=== PATIENT | female | born 1935 | race Caucasian/White ===

== ENCOUNTER → 2016-11-10 | Outpatient (CLI) | payer OTHER ==
[~2016-11-10] MED LIST: ASPI-COR81 M1 PO; ASPIRIN81 M1 PO; B121000 MCG/1 IM; BONIVA150 MG PO; CALCIUM500 M1 PO; CLINDAMYCIN HC300 MG PO; COLACE100 MG PO; DAYPRO600 M1 PO; DAYPRO600 MG; DULCOLAX STOOL100 MG PO; FERRIMIN 150150 M1 PO; HYDROCODONE BIT1 T11 PO; HYDROXYCHLOROQ200 MG PO; KEFLEX500 M1 PO; LEVOTHYROXIN0.025 MG PO; LOPRESSOR25 MG PO; MECLOFENAMATE PO; MEDROL DOSEPAK4 MG PO; NEURONTIN300 MG PO; OMEPRAZOLE20 MG PO; ORASONE5 MG PO; PLAQUENIL200 MG PO; PREDNISONE5 MG PO; PRILOSEC20 M2 PO; PRILOSEC20 MG PO; SYNTHROID,LEVO25 MCG PO; TOPROL XL25 MG PO; TRAMADOL HCL50 MG PO; VICODIN 500 MG-1 TAB PO; VISION FORMULA1 TAB PO; VISION1 TAB PO; XANAX0.25 MG PO; ZOFRAN ODT4 MG SL; [UNRECOGNIZED DRUG - OTHER] PO
== END | disposition home or self-care (01) ==
LOC: MRI 07:00
DX: M48.06 Spinal stenosis, lumbar region (principal); M47.896 Other spondylosis, lumbar region; M54.5 Low back pain; M25.552 Pain in left hip; M79.652 Pain in left thigh; M25.562 Pain in left knee; M79.605 Pain in left leg; Z98.890 Other specified postprocedural states

== ENCOUNTER → 2016-12-07 | Outpatient (CLI) | payer OTHER | END | disposition home or self-care (01) | LOC: MRI 13:41 | DX: S39.93XA Unspecified injury of pelvis, initial encounter (principal); R10.2 Pelvic and perineal pain; X58.XXXA Exposure to other specified factors, initial encounter; Y93.89 Activity, other specified; Y92.89 Other specified places as the place of occurrence of the external cause; Y99.8 Other external cause status ==

== ENCOUNTER → 2016-12-29 | Outpatient (CLI) | payer OTHER ==
--- NOTE | ~2016-12-29 | WRIGHTHP ---
[place], [place] PATIENT HISTORY AND PHYSICAL EXAM NAME: STACEY ROGERS [facility] #: [id number] UNIT #: [id number] ROOM: DOCTOR: TREVON SuárezQUIANA BIRTHDATE: 31 DOS: 12/29/2016 CHIEF COMPLAINT: Ulcer of the right lower extremity. HISTORY OF PRESENT ILLNESS: This is a new patient to the Wound Center who I have seen before in the hospital several months ago for a dehisced wound of the left lower extremity, but she is new to our wound care center. She is an 81 years old with a history of rheumatoid arthritis, on chronic prednisone therapy, who comes in for an ulcer of her right lower extremity. Apparently, it started out approximately over a month, perhaps 1-2 months. It is not quite clear when did it actually started. An area on her right lower leg anterior tibia that look like a blood blister. According to the patient and her , it was bright red, what looked to be a lesion filled with blood. At some point, it eventually looked like it had scabbed over, but may not have healed quite properly. After that he started having some wound care per his primary care physician and having home health come in to help with wound care, who had started to apply moist dressings to it, and eventually the scab came off and then it became an open ulcer afterwards that just never quite healed. For at least 2 weeks now it has been open. He has been using an antiseptic cleanser at home that he got from the [id number] and home health has been coming in and putting dressings on it, which he thinks has started out as he says some kind of a gauze material, may have had some antiseptic on it, but she is not quite clear. In any case, she did have an ulcer of her left leg several months ago, which healed with the wound care with that dehisced wound as that became infected. At the time when I had seen the patient was concerned about her vascular status and ultrasound was done of the left lower extremity at that time, which showed mild inflow disease, but severe distal atherosclerosis as the waveforms became monophasic at the ankle indicating severe distal disease, although she did have readings in the dorsalis pedis and posterior tibial artery it was noted. In any case, I had mentioned for recommended at that time to follow up with Vascular but the wound apparently did heal. The patient does not report any specific pain at the present time with the wound. She has no fevers or chills. It is not draining any purulent material that they are aware of. PAST MEDICAL HISTORY: Significant for the following: Recent shingles exacerbation, history of hypertension, osteoporosis, acute kidney disease, history of frailty and history of falls. She does use a cane to ambulate, but also has a wheelchair now. History of rheumatoid arthritis, history of mild dementia and history of pernicious anemia, thyroid disease, acid reflux, history of constipation, history of Paget's disease, and mild dementia. ALLERGIES: She has no known drug allergies. PAST SURGICAL HISTORY: She is status post right total knee with pins to the right ankle, laparoscopic cholecystectomy, right wrist surgery, left total knee replacement. She has had a stress test done. She reports no history of myocardial infarction. SOCIAL HISTORY: She does not smoke or drink. She lives with her who is quite devoted to her and helps care for her. [place], [place] PATIENT HISTORY AND PHYSICAL EXAM [facility]: [id number] UNIT #: [id number] ROOM: DOCTOR: QUIANA LESTER M.D. BIRTHDATE: [birth year] FAMILY HISTORY: Significant for cancer in her siblings, diabetes in her mother, lung disease in one of her children. MEDICATIONS: Her most recent medication list include the following: Xanax 0.25 mg p.o. p.r.n. daily, calcium 500 mg p.r.n. Vision Formula daily, Colace 100 twice a day, iron sulfate 325 daily, [place] one tablet q.4 hours p.r.n., hydroxychloroquine 200 mg p.o. b.i.d., Boniva 150 mg, levothyroxine 25 mcg daily, metoprolol 25 daily, omeprazole 20 mg p.o. b.i.d., prednisone 5 mg daily, Zofran 4 mg q.6 hours p.r.n. REVIEW OF SYSTEMS: CONSTITUTIONAL: No fevers or chills, but she has had a recent weight loss, especially with her recent bout of shingles, which is healing in the healing phases but it does cause occasional pins and needles sensation. Rest of her review of systems as far as ears, eyes, nose, throat and mouth, cardiovascular, respiratory, GI, , musculoskeletal, integumentary, neuro, psychiatric, endocrine, heme, lymph, allergies, immuno are negative unless otherwise as stated above at the present time. PHYSICAL EXAMINATION: GENERAL: She is alert, oriented and nonfocal. She is pleasant and cooperative. VITAL SIGNS: Temperature is 98.6, pulse of 72, respirations 18, blood pressure is 120/72. She appears her stated age, slightly pale to examination. HEENT: Negative. NECK: Supple. There is no JVD. LUNGS: Clear to auscultation. CARDIOVASCULAR: S1, S2 regular rate and rhythm. ABDOMEN: Soft and nontender. EXTREMITIES: She has trace edema bilaterally. There is no calf pain. Her toes are warm. She has got good capillary refill. Dorsalis pedis pulses are palpable, but I have difficult time feeling the posterior tibial. She has evidence of venous stasis disease as well. SANTIAGO was not done as the patient had complained of too much pain. The wound is located on the right anterior tibia. It is measuring 2.9 x 2 x 0.1 in depth. There is exposed subcutaneous tissue. There is a periphery. The periphery of the wound has epithelial tissue noted that appears to be new. There is no surrounding cellulitis, purulence or tenderness at this time. A debridement was done today. The tissue removed was fibrin, slough and subcutaneous tissue. There was a minimal amount of bleeding that was controlled with pressure. The patient tolerated the debridement well. Cetacaine spray was used for topical anesthesia and the instrument utilized was a curette. The 100% of the wound was debrided. The post-debridement measurements are 2.9 x 2.3 x 0.2 in depth. A tissue culture was obtained. 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 It sounds like it started out as a hematoma with subsequent poor healing. She at this time has some necrotic tissue present. Debridement was done today. I would like to use Natacha for now. A tissue culture was obtained. I do not appreciate any acute signs of an infection. She likely has some venous insufficiency and some peripheral vascular disease, which was already noted on a [place], [place] PATIENT HISTORY AND PHYSICAL EXAM NAME: [facility]UESTACEY David [facility]: [id number] UNIT #: [id number] ROOM: DOCTOR: TREVON Suárez,QUIANA BIRTHDATE: [birth year] Doppler in the past on the left lower extremity; however, I would like to get a Doppler of the right lower extremity arterial and venous will be ordered. Hopefully, we can try to schedule this at the same time of her next Wound Care Clinic, so it is somewhat difficult for her to get in and out of her house as she has not been out of the house for 2 months now. She has home health, so we are going to have them do the dressing changes, and I would use a foam bandage over this. Her most recent labs are as follows. White count of 8.5, this is back in August, hemoglobin of 11.6 and platelets of 194. Sodium of 148, this is back in August. Potassium 4.4, chloride 108, BUN 31, creatinine 1.3, glucose is 112. So factors regarding the poor wound healing include her chronic history of rheumatoid arthritis and chronic prednisone therapy. We will have the patient follow up in the Wound Clinic in one week. QUIANA LESTER MD CM:HISPHYS:PATIENT HISTORY AND PHYSICAL EXAMINATION [id number] QUIANA LESTER M.D. 12/30/16 0746 interface
== END ==
LOC: WOUNDCARE 02:01
DX: L97.812 Non-pressure chronic ulcer of other part of right lower leg with fat layer exposed (principal); I87.2 Venous insufficiency (chronic) (peripheral); I73.9 Peripheral vascular disease, unspecified; M06.9 Rheumatoid arthritis, unspecified; I10 Essential (primary) hypertension; M81.0 Age-related osteoporosis without current pathological fracture; F03.90 Unspecified dementia, unspecified severity, without behavioral disturbance, psychotic disturbance, mood disturbance, and anxiety; K21.9 Gastro-esophageal reflux disease without esophagitis; Z96.652 Presence of left artificial knee joint

== ENCOUNTER → 2017-01-09 | Outpatient (CLI) | payer OTHER ==
--- NOTE | ~2017-01-09 | PR ---
[place], [place] PROGRESS NOTE NAME: STACEY ROGERS [facility] #: [id number] UNIT #: [id number] ROOM: DOCTOR: QUIANA LESTER M.D. BIRTHDATE: [birth year] DOS: 01/09/2017 CHIEF COMPLAINT: Ulcer of the right lower extremity. HISTORY OF PRESENT ILLNESS: The ulcer is located on the anterior leg. She has had it for approximately 2 months now. It likely started out as a hematoma; however, this is not 100% sure. She has been coming to the Wound Clinic since 12/29/2016. This is her second visit. We used TheraHoney on it to help keep it clean and she is scheduled for Doppler ultrasounds to be done today. Overall, they think the wound is looking better. There is no change in drainage. There is no pain, fevers or chills. They do not have any problem with the dressing at all and she seems to like the foam and the honey. OBJECTIVE: VITAL SIGNS: Stable. Temperature is 98.6, pulse of 70, respirations 18, blood pressure is 118/70. WOUND EXAMINATION: The wound is measuring 2.1 x 2 x 0.1. There is moderate amount of fibrin and slough, exposed subcutaneous tissue. Debridement was done today. The tissue removed was fibrin, slough and subcutaneous tissue. There was a moderate amount of bleeding that was controlled with pressure. Post-debridement measurements are 2.1 x 2 x 0.2 in depth, 100% of the wound was debrided, a curette was utilized. Bleeding was controlled with pressure. ASSESSMENT AND PLAN: Right lower leg ulcer, likely was traumatic in origin, probable venous insufficiency. She does have some edema and varicosities noted on examination. She is scheduled for Doppler ultrasound today. She is on honey and will continue with this dressing for now. Follow up in 1 week. QUIANA LESTER MD CM:PNTRANS [id number] QUIANA LESTER M.D. 01/10/17 0151 interface
== END | disposition home or self-care (01) ==
LOC: US 03:34
DX: E11.622 Type 2 diabetes mellitus with other skin ulcer (principal); L97.912 Non-pressure chronic ulcer of unspecified part of right lower leg with fat layer exposed; I73.9 Peripheral vascular disease, unspecified; I87.2 Venous insufficiency (chronic) (peripheral); I10 Essential (primary) hypertension

== ENCOUNTER 2017-12-05 09:37 | Inpatient (IN) | payer OTHER ==
[2017-12-05] VITALS (8 sets, daily range): BP systolic 108–148; BP diastolic 45–60
[~2017-12-05] VITALS: Ht 157.5 cm; Wt 58.7 kg
--- NOTE | ~2017-12-05 | DS ---
[place], [place] DISCHARGE SUMMARY NAME: STACEY ROGERS UNIT #: [id number] ROOM: 524 DOCTOR: MEREDITH BAJWA MD BIRTHDATE: [birth year] DOS: 12/08/2017 DISCHARGE DIAGNOSES: 1. Fall with right hip fracture, status post open reduction and internal fixation. 2. Benign essential hypertension. 3. Adult failure to thrive. 4. Anemia with hemoglobin of 7.7. 5. Concentric left ventricular hypertrophy on echocardiogram. 6. Mitral valve and tricuspid valve regurgitation. 7. Adult failure to thrive with recurrent falls. 8. Rheumatoid arthritis. 9. Anemia of chronic disease. HOSPITAL COURSE: The patient's hemoglobin has dropped to 7.7, which will be rechecked at the [facility] facility and the patient will be transfused with blood as necessary. The patient is status post open reduction and internal fixation of her right hip fracture. Benign essential hypertension with concentric LVH. Blood pressures were monitored and treated. Blood pressures have been staying normal. Adult failure to thrive, recurrent falls and injuries. The patient worked with Physical Therapy and is going to [facility] facility for continued rehab. Anemia of chronic disease with drop in hemoglobin to 7.7. We will recheck hemoglobin at senior care, also repeat CBC on Monday and look for any drop in H and H. LABORATORY DATA: Urine culture is growing E. coli, to be treated with Augmentin. Hemoglobin 7.7. No leukocytosis. Platelets low at 104,000. Foot x-ray is showing no fractures, reviewed by Dr. Perales. DISCHARGE MANAGEMENT: Fosamax 70 mg weekly, iron 325 mg every other day, prednisone 5 mg daily, metoprolol 25 mg daily, Lovenox 60 mg daily, omeprazole 40 mg daily, levothyroxine 25 mcg daily, Colace 100 mg b.i.d., Vicodin 5/325 mg t.i.d. p.r.n. for pain, hydroxychloroquine 200 mg b.i.d. [place], [place] DISCHARGE SUMMARY NAME: STACEY ROGERS UNIT #: [id number] ROOM: 524 DOCTOR: MEREDITH BAJWA MD BIRTHDATE: [birth year] MEREDITH BAJWA MD CM:CARLOS ALBERTO [id number] MEREDITH BAJWA MD 12/08/17 1355 interface
--- NOTE | ~2017-12-05 | PR ---
[place], [place] PROGRESS NOTE [id number] UNIT #: [id number] ROOM: 524 DOCTOR: AKIRA WILCOX MD BIRTHDATE: [birth year] DOS: SUBJECTIVE: The patient is doing fine without any complaints this morning other than some minimal nausea. OBJECTIVE: VITAL SIGNS: Blood pressure is 118/60, pulse of 89, respirations 20, temperature 98.0. LUNGS: Clear. HEART: Regular, systolic murmur present. EXTREMITIES: Without any edema. LABORATORY DATA: This morning shows WBC count of 11.7, hemoglobin 9.2, hematocrit 28.6, platelets 114. Urinalysis reflects to culture. ASSESSMENT AND PLAN: 1. Fall with right hip fracture status post open reduction internal fixation. 2. Hypertension, controlled. Restart some of her home medications. 3. Adult failure to thrive. The plan is to discharge her to [facility]. Social service has been consulted. AKIRA WILCOX MD CM:PNTRANS [id number] AKIRA WILCOX MD 12/07/17 0932 interface
--- NOTE | ~2017-12-05 | WRIGHTHP ---
[place], [place] PATIENT HISTORY AND PHYSICAL EXAM NAME: STACEY ROGERS [facility] #: [id number] UNIT #: [id number] ROOM: 524 DOCTOR: AKIRA WILCOX MD BIRTHDATE: [birth year] DOS: 12/05/2017 HISTORY OF PRESENT ILLNESS: The patient is 82-year-old. The patient was at home. She walked to the bathroom and realized she did have a cane. She went back to get the cane, in the process she fell down on the right hip, developed excruciating pain, so decided to come into the Emergency Room. After she came to the ER, she had x-rays done, which showed right hip fracture and she has been admitted. This morning, she feels good, does not have any pain as long she is not moved. She does not have any shortness of breath or chest pains, does not have any fever or chills, does not have any abdominal pain, nausea, any emesis. PAST MEDICAL HISTORY: Significant for; 1. Benign hypertension. 2. Concentric LVH. 3. Valvular heart disease with MR and TR. 4. History of frailty with falls. 5. Rheumatoid arthritis. 6. History of fracture of the left hip with history of repair. 7. History of chronic anemia. MEDICATIONS: She is currently on Xanax 0.5 daily p.r.n., alendronate 70 once weekly, aspirin 81 daily, beta carotene 1 tablet daily, calcium 500 daily, Colace 100 b.i.d., iron 325 daily, Plaquenil 200 b.i.d., levothyroxine 25 mcg daily, Meloxicam 7.5 daily, metoprolol 25 daily, omeprazole 40 daily, prednisone 5 daily. SOCIAL HISTORY: Nonsmoker, does not use any alcohol. Lives at home with her . PHYSICAL EXAMINATION: GENERAL: She is awake and alert and oriented, in no distress. VITAL SIGNS: Blood pressure is 105/53, pulse of 82, respirations 16, temperature 99.1. LUNGS: Diminished breath sounds, clear. HEART: Regular. Systolic murmur heard in the second space as well as along the sternal border. . EXTREMITIES: Without any edema except for an externally rotated right hip. ABDOMEN: Obese, soft, nontender. ASSESSMENT AND PLAN: 1. Right hip fracture. The patient needs to go for surgery. 2. Benign hypertension with concentric left ventricular hypertrophy and valvular heart disease in the form of mitral regurgitation and tricuspid regurgitation. The patient does have moderate risk factors because of the cardiac problems, but that should not preclude her from having her surgery. Judicious use of IV fluids should be followed during surgery as well as post-surgery. 3. Osteoporosis, postmenopausal. Already on medications. 4. Rheumatoid arthritis, on chronic prednisone usage. The patient does not have any evidence of synovitis right now and the pain is controlled on the [place], [place] PATIENT HISTORY AND PHYSICAL EXAM NAME: STACEY ROGERS UNIT #: [id number] ROOM: 524 DOCTOR: AKIRA WILCOX MD BIRTHDATE: [birth year] current dose of medications. AKIRA WILCOX MD CM:HISPHYS:PATIENT HISTORY AND PHYSICAL EXAMINATION 0 2 AKIRA WILCOX MD 12/06/17901 interface
[2017-12-05 10:01] LABS: BASO % 0.3 % (0.0-1.0); EOS # 0.1 10*3/uL (0.0-0.4); EOS % 1.4 % (1.0-4.0); HEMATOCRIT 37.1 % (37.0-47.0); HEMOGLOBIN 12.1 g/dl (12.0-16.0); LYMPH # 1.8 10*3/uL (1.3-4.4); LYMPH % 26.7 % (27.0-41.0); MEAN CELL VOLUME 95.9 fl (81.0-99.0); MEAN CORPUSCULAR HGB 31.3 pg (27.0-31.0); MEAN CORPUSCULAR HGB CONC 32.6 g/dl (33.0-37.0); MONO # 0.5 10*3/uL (0.1-1.0); MONO % 7.5 % (3.0-9.0); NEUT # 4.2 10*3/uL (2.3-7.9); NEUT % 63.3 % (47.0-73.0); PLATELET COUNT AUTOMATED 153 10*3/uL (130-400); RED BLOOD COUNT 3.87 10*6/uL (4.10-5.10); RED CELL DISTRI WIDTH 14.6 % (0-14.5); WHITE BLOOD COUNT 6.6 10*3/uL (4.8-10.8)
[2017-12-05 10:10] LABS: ACT PARTIAL THROMBO TIME 22.9 SECONDS (20.8-31.5)
[2017-12-05 10:18] LABS: ALBUMIN 3.2 gm/dl (3.1-4.5); CREATININE 1.19 mg/dL (0.55-1.02)
[2017-12-05] MEDS ORDERED: Oscal,Oyster S500 MG PO (15:59)
[2017-12-05] MEDS ORDERED: MELOXICAM7.5 MG PO (16:00)
[2017-12-05] MEDS ORDERED: ALENDRONATE SOD70 M1 PO (16:04)
[2017-12-05] MEDS ORDERED: OMEPRAZOLE40 MG PO (16:06)
[2017-12-05] MEDS ORDERED: ASPIRIN CHEWABL81 MG PO (18:21)
[2017-12-05] MEDS ORDERED: VISION VITAMIN1 EACH PO (18:21)
[2017-12-05] MEDS ORDERED: FERROUS SULFAT325 MG PO (18:23)
[2017-12-06] VITALS (13 sets, daily range): BP systolic 99–135; BP diastolic 46–99
[2017-12-06 06:57] LABS: BASO % 0.3 % (0.0-1.0); EOS # 0.1 10*3/uL (0.0-0.4); EOS % 1.3 % (1.0-4.0); HEMATOCRIT 33.7 % (37.0-47.0); LYMPH # 1.4 10*3/uL (1.3-4.4); LYMPH % 14.7 % (27.0-41.0); MEAN CELL VOLUME 95.2 fl (81.0-99.0); MEAN CORPUSCULAR HGB 31.1 pg (27.0-31.0); MEAN CORPUSCULAR HGB CONC 32.6 g/dl (33.0-37.0); MEAN PLATELET VOLUME 9.2 fl (9.6-12.3); MONO # 0.8 10*3/uL (0.1-1.0); MONO % 8.3 % (3.0-9.0); NEUT # 7.2 10*3/uL (2.3-7.9); NEUT % 74.6 % (47.0-73.0); PLATELET COUNT AUTOMATED 125 10*3/uL (130-400); RED BLOOD COUNT 3.54 10*6/uL (4.10-5.10); RED CELL DISTRI WIDTH 14.5 % (0-14.5); WHITE BLOOD COUNT 9.7 10*3/uL (4.8-10.8)
[2017-12-06 18:01] LABS: BILIRUBIN NEGATIVE (NEGATIVE); BLOOD 3+ (NEGATIVE); CLARITY SL CLOUDY (CLEAR); COLOR YELLOW (YELLOW); GLUCOSE NEGATIVE (NEGATIVE); KETONE 2+ (NEGATIVE); LEUKO ESTERASE 1+ (NEGATIVE); NITRITE POSITIVE (NEGATIVE); PH 5.5 (5.0-9.0); SPECIFIC GRAVITY 1.025 (1.005-1.030); UROBILINOGEN 0.2 E.U./dl (0.2-1.0)
[2017-12-06 18:23] LABS: BACTERIA 1+; RBC TNTC rbc/hpf (0-2)
[2017-12-07] VITALS: BP 93/65
[2017-12-07 04:00] VITALS: BP 118/60
[2017-12-07 06:15] LABS: BASO % 0.3 % (0.0-1.0); EOS # 0.1 10*3/uL (0.0-0.4); EOS % 1.1 % (1.0-4.0); HEMATOCRIT 28.6 % (37.0-47.0); HEMOGLOBIN 9.2 g/dl (12.0-16.0); LYMPH % 8.4 % (27.0-41.0); MEAN CELL VOLUME 96.6 fl (81.0-99.0); MEAN CORPUSCULAR HGB 31.1 pg (27.0-31.0); MEAN CORPUSCULAR HGB CONC 32.2 g/dl (33.0-37.0); MEAN PLATELET VOLUME 9.3 fl (9.6-12.3); MONO # 0.8 10*3/uL (0.1-1.0); MONO % 6.7 % (3.0-9.0); NEUT # 9.7 10*3/uL (2.3-7.9); NEUT % 82.8 % (47.0-73.0); PLATELET COUNT AUTOMATED 114 10*3/uL (130-400); RED BLOOD COUNT 2.96 10*6/uL (4.10-5.10); RED CELL DISTRI WIDTH 14.6 % (0-14.5); WHITE BLOOD COUNT 11.7 10*3/uL (4.8-10.8)
[2017-12-07 08:00] VITALS: BP 108/46
[2017-12-07 12:23] VITALS: BP 98/42
[2017-12-07 16:00] VITALS: BP 121/47
[2017-12-07 20:00] VITALS: BP 107/48
[2017-12-07] MEDS ORDERED: Lovenox40 MG/0.4 SC (21:01)
[2017-12-08] VITALS: BP 112/49
[2017-12-08 06:43] LABS: BASO % 0.2 % (0.0-1.0); EOS # 0.2 10*3/uL (0.0-0.4); EOS % 1.8 % (1.0-4.0); HEMATOCRIT 23.6 % (37.0-47.0); HEMOGLOBIN 7.7 g/dl (12.0-16.0); LYMPH # 0.6 10*3/uL (1.3-4.4); LYMPH % 7.2 % (27.0-41.0); MEAN CELL VOLUME 95.2 fl (81.0-99.0); MEAN CORPUSCULAR HGB CONC 32.6 g/dl (33.0-37.0); MEAN PLATELET VOLUME 9.4 fl (9.6-12.3); MONO # 0.7 10*3/uL (0.1-1.0); MONO % 8.3 % (3.0-9.0); NEUT # 7.2 10*3/uL (2.3-7.9); PLATELET COUNT AUTOMATED 104 10*3/uL (130-400); RED BLOOD COUNT 2.48 10*6/uL (4.10-5.10); RED CELL DISTRI WIDTH 14.9 % (0-14.5); WHITE BLOOD COUNT 8.8 10*3/uL (4.8-10.8)
[2017-12-08 08:00] VITALS: BP 126/68
[2017-12-08 12:00] VITALS: BP 118/70
[2017-12-08] MEDS ORDERED: AUGMENTIN 875-875 MG PO (13:05)
[2017-12-08] MEDS ORDERED: HYDROCODONE-AC1 EAC1 PO (13:13)
== END 2017-12-08 14:30 | disposition other institution (70) | DRG 482 ==
LOC: ED 09:37 → EDHOLD 12:25 → 5E 12:25
PROVIDERS: Emergency Medicine; Family Medicine; Internal Medicine; Orthopaedic Surgery
PROC: 0QS604Z Reposition Right Upper Femur with Internal Fixation Device, Open Approach (ICD-10-PCS; principal; 2017-12-08)
DX: S72.141A Displaced intertrochanteric fracture of right femur, initial encounter for closed fracture (principal); I07.1 Rheumatic tricuspid insufficiency; D63.8 Anemia in other chronic diseases classified elsewhere; I34.0 Nonrheumatic mitral (valve) insufficiency; M06.9 Rheumatoid arthritis, unspecified; I10 Essential (primary) hypertension; M81.0 Age-related osteoporosis without current pathological fracture; R62.7 Adult failure to thrive; W18.30XA Fall on same level, unspecified, initial encounter; Y93.89 Activity, other specified; Y99.8 Other external cause status; Y92.009 Unspecified place in unspecified non-institutional (private) residence as the place of occurrence of the external cause; Z87.440 Personal history of urinary (tract) infections; Z90.49 Acquired absence of other specified parts of digestive tract; Z83.3 Family history of diabetes mellitus; Z80.9 Family history of malignant neoplasm, unspecified; Z79.899 Other long term (current) drug therapy

== ENCOUNTER → 2017-12-27 | Outpatient (CLI) | payer OTHER ==
[~2017-12-27] MED LIST changes: +ALENDRONATE SOD70 M1 PO; +ASPIRIN CHEWABL81 MG PO; +AUGMENTIN 875-875 MG PO; +FERROUS SULFAT325 MG PO; +HYDROCODONE-AC1 EAC1 PO; +Lovenox40 MG/0.4 SC; +MELOXICAM7.5 MG PO; +OMEPRAZOLE40 MG PO; +Oscal,Oyster S500 MG PO; +VISION VITAMIN1 EACH PO
== END | disposition home or self-care (01) ==
LOC: ORTHO 03:14
DX: S72.144D Nondisplaced intertrochanteric fracture of right femur, subsequent encounter for closed fracture with routine healing (principal); X58.XXXD Exposure to other specified factors, subsequent encounter

== ENCOUNTER → 2018-01-29 | Outpatient (CLI) | payer OTHER | END | disposition home or self-care (01) | LOC: ORTHO 01:54 | DX: Z47.89 Encounter for other orthopedic aftercare (principal); S72.101D Unspecified trochanteric fracture of right femur, subsequent encounter for closed fracture with routine healing; X58.XXXD Exposure to other specified factors, subsequent encounter ==